=== PATIENT | female | born 1995 | race African-American/Black ===

== ENCOUNTER 2016-10-01 20:44 | Emergency (ER) | payer SELFPAY ==
[~2016-10-01] VITALS: Ht 165.1 cm; Wt 68.5 kg
[2016-10-01 20:57] VITALS: Ht 165.1 cm; Wt 68.5 kg
[2016-10-01] MEDS ORDERED: SOD CHLORIDE 0.9% 1,000 ML IV STA (21:39)
[2016-10-01 21:53] LABS: ADD SCAN DIFF NO
[2016-10-01 22:05] LABS: BASOPHILS % 0.2 % (0.0-2.0); EOSINOPHILS % 0.4 % (0.0-7.0); HEMATOCRIT 36.9 % (37.0-47.0); HEMOGLOBIN 11.7 g/dl (12.0-16.0); LYMPHOCYTES # 3.8 10^3/ul (0.8-2.9); LYMPHOCYTES % 41.5 % (15.0-51.0); MEAN CORPUSCULAR HEMOGLOBIN 27.3 pg (29.0-33.0); MEAN CORPUSCULAR HGB CONC 31.7 g/dl (32.0-37.0); MEAN CORPUSCULAR VOLUME 86.2 fl (82.0-101.0); MEAN PLATELET VOLUME 9.2 fl (7.4-10.4); MONOCYTE # 0.5 10^3/ul (0.3-0.9); MONOCYTES % 5.7 % (0.0-11.0); NEUTROPHIL # 4.8 10^3/ul (1.6-7.5); NEUTROPHILS % 51.9 % (39.0-77.0); PLATELET COUNT 334 10^3/UL (140-415); RED BLOOD COUNT 4.28 10^6/ul (4.20-5.40); RED CELL DISTRIBUTION WIDTH 13.6 % (11.5-14.5); WHITE BLOOD COUNT 9.2 10^3/ul (4.8-10.8)
[2016-10-01 22:28] LABS: ALBUMIN 4.5 g/dl (3.3-4.9); ALBUMIN/GLOBULIN RATIO 1.21; BILIRUBIN,INDIRECT 0.1 mg/dl (0-1.1); BILIRUBIN,TOTAL 0.1 mg/dl (0.2-1.3); CALCIUM 9.3 mg/dl (8.4-10.2); CREATININE 0.88 mg/dl (0.44-1.00); TOTAL PROTEIN 8.2 g/dl (6.1-8.1)
[2016-10-01 22:32] LABS: POTASSIUM 2.8 mmol/L (3.5-5.1)
[2016-10-01 23:08] VITALS: BP 122/79; PULSE 117; RESP 19
[2016-10-01] MEDS ORDERED: POTASSIUM CITRATE (SR) 5 MEQ TAB PO STA (23:18)
[2016-10-01] MEDS ORDERED: POTASSIUM CHLORIDE (SR) 20 MEQ TAB PO STA (23:18)
--- NOTE | 2016-10-02 01:08 | ERD ---
ER Documentation Chief Complaint Date/Time DATE: 10/02/16 TIME: 01:06 Chief Complaint Taken edible marijuana. pt currently altered HPI 21-year-old woman brought in by friend for anxiety attack while at home shortly after ingesting marijuana brownies. She had palpitations and paresthesias similar previous anxiety attacks. She denies other drug ingestion, no suicidal homicidal ideation, no fevers or chills, no headache or blurry vision. Patient symptoms improved while in the ED. ROS All systems reviewed and are negative except as per history of present illness. Allergies Allergies: Coded Allergies: No Known Allergy (Unverified , 10/01/16) PMhx/Soc Anxiety Medical and Surgical Hx: pt denies Medical Hx, pt denies Surgical Hx Hx Alcohol Use: No Hx Substance Use: Yes (marijuana ) Hx Tobacco Use: No Smoking Status: Never smoker FmHx Family History: No diabetes Physical Exam Vitals Vital Signs Date Time Temp Pulse Resp B/P Pulse Ox O2 Delivery O2 Flow Rate FiO2 10/01/16 23:08 117 19 122/79 100 Room Air 10/01/16 20:57 98.5 145 24 141/86 100 Physical Exam GENERAL: Well-developed, well-nourished, well-hydrated, initially anxious HEENT: Moist mucous membranes, pink conjunctiva, no cervical spine tenderness or step-off deformities, no goiter, no jaundice or icterus, extraocular movements intact without pain. No submandibular induration, and no pharyngeal erythema NEURO: Alert and oriented 3, cranial nerves II through XII intact bilaterally, pupils equal round reactive to light, no focal deficits or facial asymmetry, sensation intact distally Strength 5/5 in upper and lower extremities bilaterally CARDIAC: Tachycardic and regular, no murmurs rubs or gallops LUNGS: Clear bilaterally no wheezing crackles or stridor ABDOMEN: Soft nontender, no guarding, no rigidity, no rebound, no psoas sign no obturator sign. Normoactive bowel sounds SKIN: Warm and dry to touch, no abrasions, contusions, or hematomas, no lacerations, no ecchymosis, no target lesions, and without ulcers EXTREMITIES: No clubbing cyanosis or edema, calves are bilaterally symmetrical, no Homans sign, no popliteal cord sign. Distal pulses equal and bilateral PSYCH: Anxious Result Diagram: 10/01/16213810/01/162138 Results 24 hrs Laboratory Tests Test 10/01/16 21:39 White Blood Count 9.210^3/ul Red Blood Count 4.2810^6/ul Hemoglobin 11.7g/dl Hematocrit 36.9% Mean Corpuscular Volume 86.2fl Mean Corpuscular Hemoglobin 27.3pg Mean Corpuscular Hemoglobin Concent 31.7g/dl Red Cell Distribution Width 13.6% Platelet Count 22952^3/UL Mean Platelet Volume 9.2fl Neutrophils % 51.9% Lymphocytes % 41.5% Monocytes % 5.7% Eosinophils % 0.4% Basophils % 0.2% Nucleated Red Blood Cells % 0.0/100WBC Neutrophils # 4.810^3/ul Lymphocytes # 3.810^3/ul Monocytes # 0.510^3/ul Eosinophils # 0.010^3/ul Basophils # 0.010^3/ul Nucleated Red Blood Cells # 0.010^3/ul Sodium Level 143mmol/L Potassium Level 2.8mmol/L Chloride Level 105mmol/L Carbon Dioxide Level 23mmol/L Anion Gap 18 Blood Urea Nitrogen 11mg/dl Creatinine 0.88mg/dl Glucose Level 149mg/dl Calcium Level 9.3mg/dl Total Bilirubin 0.1mg/dl Direct Bilirubin 0.00mg/dl Indirect Bilirubin 0.1mg/dl Aspartate Amino Transf (AST/SGOT) 27IU/L Alanine Aminotransferase (ALT/SGPT) 28IU/L Alkaline Phosphatase 48IU/L Total Protein 8.2g/dl Albumin 4.5g/dl Globulin 3.70g/dl Albumin/Globulin Ratio 1.21 Lipase 75U/L Current Medications Medications (Trade) Dose Ordered Sig/Lico Route PRN Reason Start Time Stop Time Status Last Admin Dose Admin Sodium Chloride (NS) 1,000 ml @ 1,000 mls/hr Q1H STAT IV 10/01/16 21:39 10/01/16 22:38 DC 10/01/16 21:58 Potassium Citrate (Urocit-K) 40 meq ONCE STAT PO 10/01/16 23:18 10/01/16 23:25 DC Potassium Chloride (Klor-Con 20) 40 meq ONCE STAT PO 10/01/16 23:18 10/01/16 23:25 DC 10/01/16 23:33 Procedures/MDM Patient was placed on groundwater monitoring technician rhythm strip revealed a sinus tachycardia 120 bpm with upright P and T waves. Patient was afebrile. I administered 1 L normal saline intravenously and her symptoms did improve, tachycardia resolved at this time her pulse is 80 bpm and normal. CBC was normal, electrolytes revealed hypokalemia 2.8, liver function tests are normal. I supplemented her potassium p.o. here in the emergency department. Differential diagnoses considered, included but not limited to acute coronary syndrome, pulmonary embolism, aortic dissection, abdominal aortic aneurysm, sepsis, stroke, meningitis, encephalitis, pneumonia, appendicitis, cholecystitis , bowel obstruction, pyelonephritis, nephrolithiasis, cystitis, as well as metabolic, hematologic, and electrolyte abnormalities. As well as abscess, cellulitis, fractures, and dislocations. Patient feels much better at this time, and vital signs are normal, symptoms have improved. I did give strict instructions to return to the ED if symptoms continue or worsen, patient will otherwise follow-up with primary care physician. Patient understood instructions and agreed to plan. Departure Diagnosis: Primary Impression: Drug overdose Encounter type: initial encounter Injury intent: accidental or unintentional Qualified Code: T50.901A - Drug overdose, accidental or unintentional, initial encounter Additional Impression: Acute hypokalemia Condition: Good Patient Instructions: Overdose, Accidental (Adult) MAGALI PORTILLO MD October 02, 2016 01:08
== END 2016-10-01 23:48 | disposition home or self-care (01) ==
LOC: E/R 20:44
DX: T40.7X1A Poisoning by cannabis (derivatives), accidental (unintentional), initial encounter (principal); E87.6 Hypokalemia
CPT/HCPCS: 36415; 80053; 83690; 85025; 96360; 99284; J7030